=== PATIENT | male | born 2000 | race Caucasian/White ===

== ENCOUNTER 2018-03-15 19:46 | Emergency (ER) | payer BC ==
[~2018-03-15] VITALS: Ht 170.2 cm; Wt 88.5 kg
[2018-03-15 21:34] VITALS: BP 114/66
== END 2018-03-15 21:35 | disposition home or self-care (01) ==
LOC: ER 19:46
DX: S61.221A Laceration with foreign body of left index finger without damage to nail, initial encounter (principal); W26.9XXA Contact with unspecified sharp object(s), initial encounter; Y93.89 Activity, other specified; Y92.89 Other specified places as the place of occurrence of the external cause; Y99.8 Other external cause status